=== PATIENT | male | born 1945 | race Caucasian/White ===

== ENCOUNTER 2017-08-21 08:19 | Inpatient (IN) | payer MEDICARE, OTHER ==
[2017-08-21] MEDS ORDERED: LIDOCAINE 1% (MDV) 20 ML INJ (09:17)
[2017-08-21] MEDS ORDERED: MIDAZOLAM 1 MG/ML 2 ML INJ (09:17)
[2017-08-21] MEDS ORDERED: HEPARIN 1000 UNITS/ML 10 ML INJ (09:17)
[2017-08-21] MEDS ORDERED: FENTAnyl 50 MCG/ML VIAL (09:17)
[2017-08-21] MEDS ORDERED: VERAPAMIL 5 MG INJ (09:17)
[2017-08-21] MEDS ORDERED: NITROGLYCERIN (IC) 100 MCG/ML INJ (09:18)
[2017-08-21] MEDS ORDERED: SOD CHLORIDE 0.9% 500 ML (09:18)
[2017-08-21] MEDS ORDERED: AL HYDROX/MG HYDROX/SIMETH 30 ML CUP PO ×2 (10:30)
[2017-08-21] MEDS ORDERED: ONDANSETRON 4 MG INJ IV ×2 (10:30)
[2017-08-21] MEDS ORDERED: ACETAMINOPHEN 325 MG TAB PO ×2 (10:30)
[2017-08-21] MEDS ORDERED: morphine 2 MG INJ IV (10:30)
[2017-08-21] MEDS: SOD CHLORIDE 0.9% 1,000 ML IV (11:33)
[2017-08-21] MEDS ORDERED: DEXTROSE 50% 50 ML SYRINGE IV ×2 (13:30)
[2017-08-21] MEDS ORDERED: GLUCOSE GEL 15 GRAM TUBE PO ×2 (13:30)
[2017-08-21] MEDS ORDERED: GLUCOSE GEL 15 GRAM TUBE BUCCAL (13:30)
[2017-08-21] MEDS ORDERED: GLUCAGON 1 MG INJ IM (13:30)
[2017-08-21] MEDS ORDERED: LORAZEPAM 0.5 MG TAB PO (17:30)
[2017-08-21] MEDS: INSULIN ASPART [NOVOLOG] 3 ML PEN SC ×2 (17:57→20:36)
[2017-08-21] MEDS: morphine 2 MG INJ IV (22:09)
[2017-08-22] MEDS: ACCU-CHEK XX ×2 (02:00→23:35)
[2017-08-22] MEDS: PANTOPRAZOLE (EC) 40 MG TAB PO (07:53)
[2017-08-22] MEDS: INSULIN ASPART [NOVOLOG] 3 ML PEN SC ×4 (07:55→20:33)
[2017-08-22] MEDS: morphine 2 MG INJ IV ×4 (08:32→20:40)
[2017-08-22] MEDS: ASPIRIN 81 MG TAB PO (09:02)
[2017-08-22] MEDS: AMLODIPINE 5 MG TAB PO (09:02)
[2017-08-22 15:32] LABS: ADD MAN DIFF? NO
[2017-08-22 15:34] LABS: WHITE BLOOD COUNT 6.3 10^3/ul (4.8-10.8)
[2017-08-22 15:34] LABS: BASOPHILS % 0.3 % (0.0-2.0); EOSINOPHILS # 0.1 10^3/ul (0.0-0.5); EOSINOPHILS % 1.1 % (0.0-7.0); HEMATOCRIT 38.3 % (42.0-52.0); LYMPHOCYTES # 1.1 10^3/ul (0.8-2.9); LYMPHOCYTES % 17.3 % (15.0-51.0); MEAN CORPUSCULAR HEMOGLOBIN 30.3 pg (29.0-33.0); MEAN CORPUSCULAR HGB CONC 33.9 g/dl (32.0-37.0); MEAN CORPUSCULAR VOLUME 89.3 fl (82.0-101.0); MEAN PLATELET VOLUME 10.5 fl (7.4-10.4); MONOCYTE # 0.5 10^3/ul (0.3-0.9); MONOCYTES % 8.4 % (0.0-11.0); NEUTROPHIL # 4.6 10^3/ul (1.6-7.5); NEUTROPHILS % 72.7 % (39.0-77.0); PLATELET COUNT 192 10^3/UL (140-415); RED BLOOD COUNT 4.29 10^6/ul (4.70-6.10); RED CELL DISTRIBUTION WIDTH 12.7 % (11.5-14.5)
[2017-08-22] MEDS: NITROGLYCERIN 0.1 MG/HR PATCH TRANSDERM (16:02)
[2017-08-22] MEDS: ENOXAPARIN 40 MG/0.4 ML SYG SC (16:06)
[2017-08-22 16:21] LABS: ALANINE AMINOTRANSFERASE 50 IU/L (13-69); ALBUMIN 3.2 g/dl (3.3-4.9); ALBUMIN/GLOBULIN RATIO 1.33; ALKALINE PHOSPHATASE 93 IU/L (42-121); ANION GAP 9 (8-16); ASPARTATE AMINO TRANSFERASE 28 IU/L (15-46); BILIRUBIN,INDIRECT 0.3 mg/dl (0-1.1); BILIRUBIN,TOTAL 0.3 mg/dl (0.2-1.3); BLOOD UREA NITROGEN 16 mg/dl (7-20); CALCIUM 8.7 mg/dl (8.4-10.2); CARBON DIOXIDE 26 mmol/L (21-31); CHLORIDE 109 mmol/L (97-110); CREATININE 0.91 mg/dl (0.61-1.24); GLUCOSE 209 mg/dl (70-220); POTASSIUM 4.5 mmol/L (3.5-5.1); SODIUM 139 mmol/L (135-144); TOTAL PROTEIN 5.6 g/dl (6.1-8.1)
[2017-08-22 16:39] LABS: TROPONIN-I 0.165 ng/ml (0.000-0.120)
[2017-08-22] MEDS: IOHEXOL 100 ML (19:00)
[2017-08-22] MEDS: SOD CHLORIDE 0.9% 100 ML (19:00)
[2017-08-22] MEDS: ATORVASTATIN 80 MG TAB PO (20:34)
[2017-08-23] MEDS: PANTOPRAZOLE (EC) 40 MG TAB PO (06:00)
[2017-08-23] MEDS: INSULIN ASPART [NOVOLOG] 3 ML PEN SC ×4 (07:55→20:51)
[2017-08-23] MEDS: AMLODIPINE 5 MG TAB PO (08:38)
[2017-08-23] MEDS: ASPIRIN 81 MG TAB PO (08:39)
[2017-08-23] MEDS: NITROGLYCERIN 0.1 MG/HR PATCH TRANSDERM (08:40)
[2017-08-23] MEDS: ENOXAPARIN 40 MG/0.4 ML SYG SC (09:04)
[2017-08-23 11:32] LABS: ADD MAN DIFF? NO
[2017-08-23 11:44] LABS: BASOPHILS % 0.5 % (0.0-2.0); EOSINOPHILS # 0.2 10^3/ul (0.0-0.5); EOSINOPHILS % 2.3 % (0.0-7.0); HEMATOCRIT 38.3 % (42.0-52.0); HEMOGLOBIN 12.8 g/dl (14.0-18.0); LYMPHOCYTES # 1.5 10^3/ul (0.8-2.9); LYMPHOCYTES % 22.6 % (15.0-51.0); MEAN CORPUSCULAR HEMOGLOBIN 30.3 pg (29.0-33.0); MEAN CORPUSCULAR HGB CONC 33.4 g/dl (32.0-37.0); MEAN CORPUSCULAR VOLUME 90.5 fl (82.0-101.0); MEAN PLATELET VOLUME 10.7 fl (7.4-10.4); MONOCYTE # 0.7 10^3/ul (0.3-0.9); MONOCYTES % 9.9 % (0.0-11.0); NEUTROPHIL # 4.2 10^3/ul (1.6-7.5); NEUTROPHILS % 64.4 % (39.0-77.0); PLATELET COUNT 185 10^3/UL (140-415); RED BLOOD COUNT 4.23 10^6/ul (4.70-6.10); RED CELL DISTRIBUTION WIDTH 12.9 % (11.5-14.5)
[2017-08-23 11:44] LABS: WHITE BLOOD COUNT 6.6 10^3/ul (4.8-10.8)
[2017-08-23 12:07] LABS: PHOSPHORUS 3.7 mg/dl (2.5-4.9)
[2017-08-23 12:07] LABS: ANION GAP 10 (8-16); BLOOD UREA NITROGEN 14 mg/dl (7-20); CALCIUM 8.8 mg/dl (8.4-10.2); CARBON DIOXIDE 28 mmol/L (21-31); CHLORIDE 108 mmol/L (97-110); CREATININE 1.02 mg/dl (0.61-1.24); GLUCOSE 176 mg/dl (70-220); MAGNESIUM 1.8 mg/dl (1.7-2.5); POTASSIUM 4.1 mmol/L (3.5-5.1); SODIUM 142 mmol/L (135-144)
[2017-08-23] MEDS ORDERED: HALOPERIDOL 5 MG INJ IM (13:00)
[2017-08-23] MEDS ORDERED: morphine LIQ (10 MG/5 ML) CUP PO (14:51)
[2017-08-23] MEDS: morphine 2 MG INJ IV (19:39)
[2017-08-23] MEDS: ATORVASTATIN 80 MG TAB PO (20:51)
[2017-08-24] MEDS ORDERED: ASPIRIN 600 MG SUPP PR (07:30)
[2017-08-24] MEDS ORDERED: NORepinephrine 8MG/250 ML (PMX 250 ML IV (07:30)
[2017-08-24] MEDS ORDERED: EPINEPHrine 4 MG in DEXTROSE 5% 246 ML IV (07:30)
[2017-08-24] MEDS ORDERED: PHENYLephrine 20MG IN 250 ML 250 ML IV (07:30)
[2017-08-24] MEDS ORDERED: INSULIN HUMAN REGULAR 100 UNIT in SOD CHLORIDE 0.9% 99 ML IVPB (07:30)
[2017-08-24] MEDS ORDERED: HEPARIN (10000 UNITS/ML) 10,000 UNIT, MILRINONE LACTATE 10 MG in SOD CHLORIDE 0.9% 1,00... SC (07:30)
[2017-08-24] MEDS ORDERED: MILRINONE LACTATE 2 MG in SOD CHLORIDE 0.9% 50 ML IV (07:30)
== END 2017-08-23 22:51 | disposition short-term general hospital (02) | DRG 281 ==
LOC: CCL 08:19 → SDS 08:19 → CCL 10:02 → TEL 10:02
PROVIDERS: Internal Medicine
PROC: 4A023N7 Measurement of Cardiac Sampling and Pressure, Left Heart, Percutaneous Approach (ICD-10-PCS; principal; 2017-08-21 08:55)
PROC: B211YZZ Fluoroscopy of Multiple Coronary Arteries using Other Contrast (ICD-10-PCS; 2017-08-21 08:55)
PROC: B215YZZ Fluoroscopy of Left Heart using Other Contrast (ICD-10-PCS; 2017-08-21 08:55)
DX: I21.4 Non-ST elevation (NSTEMI) myocardial infarction (principal); I69.351 Hemiplegia and hemiparesis following cerebral infarction affecting right dominant side; E11.9 Type 2 diabetes mellitus without complications; I65.22 Occlusion and stenosis of left carotid artery; I25.10 Atherosclerotic heart disease of native coronary artery without angina pectoris; I10 Essential (primary) hypertension; E78.5 Hyperlipidemia, unspecified; F17.210 Nicotine dependence, cigarettes, uncomplicated; Z79.4 Long term (current) use of insulin; Z79.84 Long term (current) use of oral hypoglycemic drugs; Z79.82 Long term (current) use of aspirin
CPT/HCPCS: 70498; 80048; 80053; 82962; 83735; 84100; 84484; 85025; 93005; 93454; 93458; 93880